=== PATIENT | male | born 1950 | race Caucasian/White ===

== ENCOUNTER 2020-10-27 09:57 | Day surgery (SDC) | payer MEDICARE, BC ==
[~2020-10-27] VITALS: Ht 180.3 cm; Wt 103.6 kg
[~2020-10-27 09:57] MED LIST: DOCUSATE SODIU100 MG PO; FLUOXETINE HCL20 MG PO; LORAZEPAM1 MG PO; MELOXICAM7.5 MG PO; METHOCARBAMOL750 MG PO; METOPROLOL SUCC50 MG PO; PERCOCET 5-3251 EACH PO; PERCOCET 7.5-31 EACH PO; SIMVASTATIN80 MG PO; TAMSULOSIN HCL0.4 MG PO; VERAPAMIL HCL120 MG PO
[2020-10-27] MEDS ORDERED: VITAMIN D350 MC3 PO (10:11)
--- NOTE | 2020-10-27 12:24 | NUR ---
10/27/20 1224 Valencia Ivey 1218- PT ARRIVES TO PACU AWAKE AND TALKING. PT REPORTS NO DIZZINESS, PAIN, OR NAUSEA. RESP EVEN AND UNLABORED. OXYGEN SAT MID TO HIGH 90'S ON 2L VIA NC. 1222- OXYGEN TITRATED OFF.
--- NOTE | 2020-10-28 12:12 | OR ---
[facility] [address] [place], [place] [address] Signed DATE OF OPERATION: 10/27/2020 SURGEON: Josh Hidalgo MD PREOPERATIVE DIAGNOSES: 1. History of hyperplastic polyp in rectum, 2016. 2. Episodic diarrhea. 3. Rare blood per rectum. POSTOPERATIVE DIAGNOSES: 1. Polyps x6, some hyperplastic, some adenomatous. 2. Diverticular changes, sigmoid. 3. Internal hemorrhoids. PROCEDURES: Total colonoscopy to cecum with cold snare polypectomy x3, cold morcellation polypectomy x3. ANESTHESIA: Intravenous sedation and fentanyl 100 mcg and Versed 8 mg. INDICATION: A 70-year-old white man is a patient of Tamiko DOMINGUEZ, known to me from the past having last undergone colonoscopy in 2016 at which time he was found to have a hyperplastic polyp of the rectum. He for the past two years has had episodic diarrhea, occasionally blood per rectum. He is admitted at this time to undergo colonoscopy on that basis. He understands the risks of bleeding, infection, and perforation. FINDINGS: The prep was excellent. Complete colonoscopy was undertaken to the cecum without question. He had scattered diverticula of the sigmoid, which were not a dominant feature. He had 6 small polyps throughout the colon, all of them excised, 3 of which were likely adenoma with 3 likely hyperplastic polyps. He also had a single internal hemorrhoid, which may account for his bleeding. Notably, it was not bleeding today. DESCRIPTION OF PROCEDURE: Patient was brought to the endoscopy suite and placed in lateral decubitus position, given intravenous sedation to the point of slurred speech and nystagmus. Digital rectal examination was normal. Electronically Signed By: JOSH HIDALGO MD 10/28/20 1212 PATIENT NAME: PARISH POOL OPERATIVE REPORT DATE OF : 46 REPORT #: [id number] PHYSICIAN: JOSH HIDALGO MD PCP: TAMIKO LYNN PAC REPORT IS CONFIDENTIAL AND NOT TO BE RELEASED WITHOUT AUTHORIZATION [facility] [address] [place], [place] [address] Signed An Olympus video colonoscope was passed in the rectum and manipulated throughout the colon ultimately intubating the cecum itself. The ileocecal valve and appendiceal orifice were normal. The scope was withdrawn. Examination showed no sign of abnormality until the left transverse colon/splenic flexure area where a small apparent polyp was noted, this was excised with cold morcellation technique, though it was quite minimal and may prove to be not even a polyp, but rather lymphoid aggregate. The scope was withdrawn and 2 polyps quite obviously polyps were noted in the mid to upper left colon, 2 of them excised with cold snare technique. Further withdrawal of scope showed 2 similar such polyps in the sigmoid, 1 excised with cold morcellation technique, the other with cold snare technique. The scope was withdrawn and retroflexed view was undertaken showing no sign of polyps in the low rectum, but certainly internal hemorrhoidal changes dominant column. Notably, it was not bleeding. A polyp in the low rectum was also noted, this was excised with cold morcellation technique. In aggregate, 6 polyps were excised. He is taken to the recovery room at conclusion of procedure having suffered no known complications. CONCLUDING DIAGNOSES: 1. Polyps x6, likely 3 adenomatous, 3 hyperplastic. 2. Internal hemorrhoid likely accounting for episodic rectal bleeding and minimal diverticular changes. PLAN: We would recommend a repeat colonoscopy in 1-3 years depending on patient preference, sooner if symptoms should recur. If he does have persistent bleeding, consideration will be made for hemorrhoidal banding in the office setting. I would recommend a high-fiber diet or a fiber supplement such as Metamucil 1 scoop daily. He will return to the ongoing care of Tamiko Lynn in the meantime. MD HERON Fraser/VELVETL /[id number] cc: ALBERTO Arora Electronically Signed By: JOSH HIDALGO MD 10/28/20 1212 PATIENT NAME: PARISH POOL OPERATIVE REPORT DATE OF : 46 REPORT #: [id number] PHYSICIAN: JOSH HIDALGO MD PCP: TAMIKO LYNN PAC REPORT IS CONFIDENTIAL AND NOT TO BE RELEASED WITHOUT AUTHORIZATION [facility] [address] [facility] [place], [place] [address] Signed Copies: ~ Electronically Signed By: JOSH HIDALGO MD 10/28/20 1212 PATIENT NAME: CORINEPARISH VINCENZO OPERATIVE REPORT DATE OF : 46 REPORT #: [id number] PHYSICIAN: JOSH HIDALGO MD PCP: TAMIKO LYNN PAC REPORT IS CONFIDENTIAL AND NOT TO BE RELEASED WITHOUT AUTHORIZATION
--- NOTE | 2020-10-28 14:54 | PATH ---
[facility] [address] [facility] [place], [place] [address] Signed SPECIMEN(S): A SPLENIC FLEXURE POLYP SPECIMEN(S): B DESCENDING POLYP SPECIMEN(S): C DESCENDING POLYP SPECIMEN(S): D SIGMOID POLYP SPECIMEN(S): E SIGMOID POLYP SPECIMEN(S): F RECTAL POLYP SPECIMEN SOURCE: A. SPLENIC FLEXURE POLYP B. DESCENDING POLYP C. DESCENDING POLYP D. SIGMOID POLYP E. SIGMOID POLYP F. RECTAL POLYP CLINICAL HISTORY: Colonoscopy with poss. biopsies. Rectal polyp, diarrhea. Postop Dx: Multiple polyps, diverticulosis, internal hemorrhoids. MICROSCOPIC DESCRIPTION: Histologic sections of all submitted blocks are examined by light microscopy. These findings, together with the gross examination, support the pathologic diagnosis. FINAL PATHOLOGIC DIAGNOSIS: A. Colon, splenic flexure, polyp, polypectomy: - Tubular adenoma. - Negative for high-grade dysplasia or malignancy. B. Colon, descending, polyp, polypectomy: - Tubular adenoma. - Negative for high-grade dysplasia or malignancy. C. Colon, descending, polyp, polypectomy: - Tubular adenoma. - Negative for high-grade dysplasia or malignancy. D. Colon, sigmoid, polyp, polypectomy: - Tubular adenoma. - Negative for high-grade dysplasia or malignancy. E. Colon, sigmoid, polyp, polypectomy: - Fragments of tubular adenoma. - Negative for high-grade dysplasia or malignancy. F. Rectum, polyp, polypectomy: - Hyperplastic polyp. PATIENT NAME: PARISH POOL VINCENZO PATHOLOGY DATE OF : 46 REPORT #: [id number] PHYSICIAN: MARISSA PATHOLOGY PCP: TAMIKO LYNN PAC REPORT IS CONFIDENTIAL AND NOT TO BE RELEASED WITHOUT AUTHORIZATION [facility] [address] [place], [place] [address] Signed - Negative for dysplasia or malignancy. NAL:cml:C2NR GROSS DESCRIPTION: Six specimens are received in six containers labeled with "JH." A. The specimen, labeled "JH," and designated on the requisition "splenic flexure polypectomy," is received in formalin and consists of two fragments of pink-loyola tissue (0.3 x 0.2 x 0.1 cm in aggregate). The specimen is submitted entirely in cassette (A1). B. The specimen, labeled "JH," and designated on the requisition "descending/left polypectomy," is received in formalin and consists of one fragment of pink-loyola tissue (0.3 x 0.2 x 0.2 cm). The specimen is submitted entirely in cassette (B1). C. The specimen, labeled "JH," and designated on the requisition "descending/left polypectomy," is received in formalin and consists of one piece of pink-loyola tissue (0.3 x 0.3 x 0.3 cm). The specimen is submitted entirely in cassette (C1). D. The specimen, labeled "JH," and designated on the requisition "sigmoid polypectomy," is received in formalin and consists of one fragment of pink-loyola tissue (0.3 x 0.2 x 0.2 cm). The specimen is submitted entirely in cassette (D1). E. The specimen, labeled "JH," and designated on the requisition "sigmoid polypectomy," is received in formalin and consists of one fragmented piece of pink-loyola tissue (0.7 x 0.4 x 0.4 cm). The specimen is submitted entirely in cassette (E1). F. The specimen, labeled "JH," and designated on the requisition "rectum polypectomy," is received in formalin and consists of one fragment of pink-loyola tissue (0.3 x 0.2 x 0.2 cm). The specimen is submitted entirely in cassette (F1). AC (under the direct supervision of a pathologist) The Gross Description was prepared using a voice recognition system. The report was reviewed for accuracy; however, sound-alike word errors, addition and/or deletions may occur. If there is any question about this report, please contact Client Services. PERFORMING LABORATORY: The technical component was performed by [facility] [address] (Pharmacognosy Teacher: Preeti Cardoza MD; CLIA# [id number]). [facility], [address] [facility]. 107, PATIENT NAME: PARISH POOL PATHOLOGY DATE OF : 46 REPORT #: [id number] PHYSICIAN: MARISSA GONZALEZ PCP: TAMIKO LYNN PAC REPORT IS CONFIDENTIAL AND NOT TO BE RELEASED WITHOUT AUTHORIZATION [facility] [address] [facility] [place] [address] Signed [place] [id number] (CLIA# [id number]). Diagnostician: Aline Vickers MD Pathologist Electronically Signed 10/28/2020 Copies: ~ PATIENT NAME: PARISH POOL PATHOLOGY DATE OF : 46 REPORT #: [id number] PHYSICIAN: MARISSA GONZALEZ PCP: TAMIKO LYNN PAC REPORT IS CONFIDENTIAL AND NOT TO BE RELEASED WITHOUT AUTHORIZATION
== END 2020-10-27 12:50 | disposition home or self-care (01) ==
LOC: OPS 09:57 → DS 10:01 → OPS 11:00 → DS 11:00 → OPS 12:50 → DS 13:00
PROVIDERS: ATTEND Surgery
PROC: 0DBN8ZX Excision of Sigmoid Colon, Via Natural or Artificial Opening Endoscopic, Diagnostic (ICD-10-PCS; 2020-10-27)
PROC: 0DBN8ZX Excision of Sigmoid Colon, Via Natural or Artificial Opening Endoscopic, Diagnostic (ICD-10-PCS; 2020-10-27)
PROC: 0DBL8ZX Excision of Transverse Colon, Via Natural or Artificial Opening Endoscopic, Diagnostic (ICD-10-PCS; 2020-10-27)
PROC: 0DBM8ZX Excision of Descending Colon, Via Natural or Artificial Opening Endoscopic, Diagnostic (ICD-10-PCS; principal; 2020-10-27 11:00)
DX: K57.31 Diverticulosis of large intestine without perforation or abscess with bleeding (principal); K64.8 Other hemorrhoids; D12.4 Benign neoplasm of descending colon; D12.5 Benign neoplasm of sigmoid colon; D12.3 Benign neoplasm of transverse colon; I10 Essential (primary) hypertension; F17.210 Nicotine dependence, cigarettes, uncomplicated; Z88.5 Allergy status to narcotic agent; Z88.8 Allergy status to other drugs, medicaments and biological substances; Z92.3 Personal history of irradiation
CPT/HCPCS: 99153; G0500; J2250; J3010; J7121

== ENCOUNTER 2021-01-20 16:41 | Inpatient (IN) | payer MEDICARE, BC ==
[~2021-01-20] VITALS: Ht 185.4 cm; Wt 104.6 kg
[~2021-01-20 16:41] MED LIST changes: -METOPROLOL SUCC50 MG PO; +TOPROL XL100 MG PO; +VITAMIN D350 MC3 PO
[2021-01-20] MEDS ORDERED: ATORVASTATIN CA40 MG PO (17:47)
[2021-01-20] MEDS ORDERED: CHLORTHALIDONE25 MG PO (17:47)
[2021-01-20] MEDS ORDERED: COLESTIPOL HCL1 GM PO (17:47)
[2021-01-20] MEDS ORDERED: FLUOXETINE HCL10 MG PO (17:48)
[2021-01-20] MEDS ORDERED: NITROFURANTOIN100 M1 PO (17:49)
--- NOTE | 2021-01-20 21:10 | NUR ---
PT ARRIVES TO FLOOR VIA STRETCHER, ABLE TO STAND AND WALK INTO THE BATHROOM WITH SBA. ADMISSION PROCESS COMPLETE. BRIAN BOX DELIVERED FROM [employer]LECTROSL[employer] WELDING MACHINE OPERATOR. PT ATE MINIMAL AMOUNT REPORTS NAUSEA AND STOMACH DISCOMFORT. PT REQUESTS NAUSEA MEDICATION AND TYLENOL. ADMINISTERED ORDERED. IV FLUSHED. WNL. ICE WATER PROVIDED. ORIENTED TO ROOM, CALL LIGHT, AND POC FOR THIS SHIFT. PT STATES UNDERSTANDING. DENIES FURTHER NEEDS AT THIS TIME. CALL LIGHT IN REACH.
--- NOTE | 2021-01-20 22:45 | NUR ---
ASSESSMENT COMPLETE, ADMISSSION COMPLETED BY GEODESIST ERIKA. IV FLUIDS ALREADY INFUSING PER MD ORDERS, SITE WNL. pt AWAKE AND RESTING IN BED, REPORTS GENEALIZED ABD DISCOMFORT, MEDICATED BY GEODESIST ERIKA. WILL CONTINUE TO MONITOR. pt DENIES ADDITIONAL NEEDS AT THIS TIME, ALREADY ORIENTED TO ROOM. CALL LIGHT IN REACH.
--- NOTE | 2021-01-21 | NUR ---
CALL LIGHT ANSWERED, pt ASSISTED SBA TO BATHROOM FOR POSSIBLE BM, pt INSTRUCTED TO USE CALL LIGHT WHEN DONE. pt VERBALIZES UNDERSTANDING, CALL LIGHT IN REACH.
--- NOTE | 2021-01-21 00:18 | NUR ---
on to assist pt from toilet, new gown and draw sheet provided, no further needs at this time
--- NOTE | 2021-01-21 01:00 | NUR ---
pt RESTING IN BED WITH EYES CLOSED, RR EVEN AND UNLABORED. NO DISTRESS NOTED, CALL LIGHT IN REACH. IV FLUIDS CONTINUE TO INFUSE PER MD ORDERS.
--- NOTE | 2021-01-21 01:51 | NUR ---
ON PHONE WITH BILL FROM TELEPHARMACY, BILL TO RETIME SCHEDULED CEFEPIME PER RENAL DOSING POLICY. ABX TO START AT 0900.
--- NOTE | 2021-01-21 02:20 | NUR ---
SHIFT REPORT RECEIVED FROM ERICKSON MCDONALD. PT SLEEPING.
--- NOTE | 2021-01-21 02:30 | NUR ---
ASSESSMENT, VS AND I&O COMPLETED. PT REPORTS 3/10 ABD PAIN, DENIES NEED FOR INTERVENTION.PT REPORTS MILD ABD DISTENTION, TENDERNESS, BOWEL TONES ACTIVE. DENIES PAIN OR DIFFICULTY WITH URINATION. NO OTHER NEEDS. CALL LIGHT IN REACH.
--- NOTE | 2021-01-21 02:33 | NUR ---
IN TO GET VITALS WITH RN, ICE WATER TOPPED OFF, NO FURTHER NEEDS AT THSI TIME
--- NOTE | 2021-01-21 04:22 | NUR ---
PT STATES HE HAS 6/10 LOWER BAD PAIN, PRN PAIN MED PROVIDED. NEW BAG IV FLUIDS PROVIDED. NO OTHER NEEDS AT THIS TIME.
--- NOTE | 2021-01-21 07:30 | NUR ---
THIS RN RECEIVED REPORT FROM DESI MCDONALD. PT AWAKE THIS AM AND STATES THAT HIS PAIN IS IMPROVING THIS AM. NO FURTHER CONCERNS
--- NOTE | 2021-01-21 10:05 | NUR ---
THIS RN IN PTS ROOM TO DO PTS ASSESMENT AND GIVE MORNIGN MEDS. PT SITTING UP IN BED AND STATES THAT HIS PAIN IS INCREASING THIS AM, THIS RN TO PROVIDE PT WITH 650MG TYLENOL FOR PTS PAIN IN ABD
--- NOTE | 2021-01-21 12:05 | NUR ---
THIS RN IN PTS ROOM TO CHECK ON PT. PT STATES THAT HE IS DOING WELL. THIS RN ALSO TO SWITCH ANTIBIOTICS OVER PER MD ORDERS. PT STATES THAT HE NEEDS NOTING ELSE AT THIS TIME.
--- NOTE | 2021-01-21 14:30 | NUR ---
THIS RN IN PTS ROOM TO REASSESS PT. PT STATES THAT HE IS DOING WELL AND NEEDS NOTHING AT THIS TIME, JUST READY TO TAKE A SHOWER SOON.
--- NOTE | 2021-01-21 18:09 | NUR ---
pt up to the chair at this time after shower. pt states that his pain is doing much better this afternoon and needs nothing at this time.
--- NOTE | 2021-01-21 19:37 | NUR ---
REPORT RECEIVED FROM DAY SHIFT RN. PT SITTING IN RECLINER ALERT AND ORIENTED. IVF INFUSING. WHITE BOARD UPDATED. DENIES NEEDS AT THIS TIME. CALL LIGHT IN REACH.
--- NOTE | 2021-01-21 21:00 | NUR ---
EVENING ASSESSMENT COMPLETE. SCHEDULED MEDS ADMINISTERED PER EMAR. IVF INFUSING ORDERED. PT REPORTS LOWER ABD/BACK/HEADACHE PAIN. AGREES TO WAIT FOR PRN ADMINISTRATION TIME. COFFEE AND SNACK PROVIDED PER REQUEST. URINAL WITH 100 ML YELLOW URINE EMPTIED. PT DOES REPORTS SOME BURNING PAIN WHEN STARTING STREAM. PT DENIES QUESTIONS OR CONCERNS. CALL LIGHT IN REACH.
--- NOTE | 2021-01-21 22:30 | NUR ---
PRN ADMINISTERED FOR REPORTS OF BACK AND LOWER ABD PAIN. URINAL EMPTIED OF 150 ML YELLOW URINE. NO FURTHER NEEDS. CALL LIGHT IN REACH.
--- NOTE | 2021-01-22 01:33 | NUR ---
PT RESTING IN BED WITH EYES CLOSED, NAD.
--- NOTE | 2021-01-22 02:20 | NUR ---
CALL LIGHT ANSWERED. IV PUMP ALARMING. NEW BAG IV FLUID INFUSING. FRESH WATER PROVIDED. DENIES FURTHER NEEDS.
--- NOTE | 2021-01-22 04:53 | NUR ---
VS AND I&O COMPLETE. PRN FOR PROVIDED FOR LOWER ABD PAIN. PT VOID QS CLEAR YELLOW URINE. SNACK PROVIDED. DENIES FURTHER NEEDS. CALL LIGHT IN REACH.
--- NOTE | 2021-01-22 07:39 | NUR ---
this rn received report from danial marie. pt states that he is ready for breakfast and needs nothing else at this time
--- NOTE | 2021-01-22 09:00 | NUR ---
this rn in pts room to give pt his mornign meds. pt sitting up in chair this am and states that his pain is 1/10 in his abdomen and when he pees. pt states that it hasn't really changed from yesterday. pt states that he has nothing else to report this am
[2021-01-22] MEDS ORDERED: CIPROFLOXACIN500 MG PO (11:36)
== END 2021-01-22 12:55 | disposition home or self-care (01) | DRG 862 ==
LOC: ED 16:41 → MS 20:59
PROVIDERS: ADMIT Internal Medicine; ATTEND Internal Medicine
DX: T81.40XA Infection following a procedure, unspecified, initial encounter (principal); A41.59 Other Gram-negative sepsis; N30.00 Acute cystitis without hematuria; N17.9 Acute kidney failure, unspecified; N18.4 Chronic kidney disease, stage 4 (severe); T81.44XA Sepsis following a procedure, initial encounter; G89.29 Other chronic pain; M54.9 Dorsalgia, unspecified; I12.9 Hypertensive chronic kidney disease with stage 1 through stage 4 chronic kidney disease, or unspecified chronic kidney disease; E78.5 Hyperlipidemia, unspecified; K21.9 Gastro-esophageal reflux disease without esophagitis; F39 Unspecified mood [affective] disorder; F17.290 Nicotine dependence, other tobacco product, uncomplicated; Z86.010 Personal history of colon polyps; Z85.46 Personal history of malignant neoplasm of prostate; Z88.5 Allergy status to narcotic agent; Z79.899 Other long term (current) drug therapy
CPT/HCPCS: 36415; 51798; 80048; 80053; 81001; 83605; 83735; 85025; 87040; 87077; 87088; 87186; 99284-25; C9113; C9803; J0692; J0744; J2405; J3475; J7030; J7121; U0003

== ENCOUNTER 2021-09-29 18:13 | Emergency (ER) | payer MEDICARE, BC ==
[~2021-09-29] VITALS: Ht 185.4 cm; Wt 104.3 kg
[~2021-09-29 18:13] MED LIST changes: +ATORVASTATIN CA40 MG PO; +CHLORTHALIDONE25 MG PO; +CIPROFLOXACIN500 MG PO; +COLESTIPOL HCL1 GM PO; +FLUOXETINE HCL10 MG PO; +NITROFURANTOIN100 M1 PO
[2021-09-29] MEDS ORDERED: METOPROLOL SUC100 MG PO (19:20)
--- NOTE | 2021-10-02 10:06 | OR ---
[facility] [address] [facility] [place] [address] Signed DATE OF OPERATION: 09/29/2021 SURGEON: Nery Dukes MD PREPROCEDURAL DIAGNOSES: 1. Difficult Champion catheterization. 2. History of urethral stricture disease. POSTPROCEDURAL DIAGNOSES: 1. Difficult Champion catheterization due to the presence of a tight membranous urethral stricture. 2. History of prostate cancer, status post proton therapy treatment. NAMES OF PROCEDURES: 1. Diagnostic ureteroscopy. 2. Urethral dilation using Aleida sounds, from 12-Swedish to 20-Swedish. 3. Placement of indwelling Champion catheter over a Sensor wire. SURGEON: Nery Dukes MD. ANESTHESIA: A 20 mL of 2% lidocaine gel. SPECIMENS: None. DRAINS: A 16-Swedish [place]reau tip Champion catheter, connected to gravity drainage. COMPLICATIONS: None. INDICATIONS FOR PROCEDURE: Mr. Barrow is a very pleasant 71-year-old gentleman with a history of prostate cancer, treated with proton therapy in 2002. His PSA has remained mostly undetectable and he has not experienced any recurrence of his prostate cancer since that time. However, a few years ago the patient began to experience a weak force of stream and difficulty voiding. He has undergone multiple urethral dilations by Dr. Mckinley in the past, most of them performed under anesthesia. The patient reports that approximately 3 months Electronically Signed By: NERY DUKES MD 10/02/21 1006 PATIENT NAME: PARISH BARROW OPERATIVE REPORT DATE OF : 46 REPORT #: [id number] PHYSICIAN: NERY DUKES MD PCP: TAMIKO LYNN PAC REPORT IS CONFIDENTIAL AND NOT TO BE RELEASED WITHOUT AUTHORIZATION [facility] [address] [place], [place] [address] Signed ago, he began to experience weakness in his force of stream again and since that time he has been trying to establish with a new urologist. He noticed earlier today that he was unable to void and immediately contacted a ride to be sent to the Emergency Department. OPERATIVE FINDINGS: 1. Inspection of the external genitalia reveals a normal circumcised phallus with a glanular meatus. Testicles are descended bilaterally. 2. Ureteroscopy reveals a tight membranous urethral stricture. Thankfully, I was able to dilate the stricture over a Sensor wire using Aleida sounds from 12-Swedish to 20-Swedish without difficulty. 3. A 16-Swedish F[place]reau tip Champion catheter was passed over the Sensor wire and into the patient's bladder. The Champion catheter balloon was filled with 10 mL of sterile water. Approximately 350 mL of urine was then drained from the patient's bladder at the end of the procedure. DESCRIPTION OF PROCEDURE: After informed consent was obtained, the patient was placed in the supine position and his genitalia prepped and draped in sterile fashion. A 20 mL of lidocaine gel was then inserted into his urethra for local anesthesia. He was also given 0.5 mg of Dilaudid just prior to the procedure. A flexible cystoscope was advanced through his urethral meatus and into his pendulous urethra. I made it to the membranous urethra and I immediately noticed a very tight small opening in the area. This is most likely consistent with his previous history of urethral stricture. I passed a 0.035 Sensor wire through the stricture and into the patient's bladder. I then removed the flexible cystoscope, leaving the wire behind. Over the wire, I then passed multiple Atif dilators in succession, starting with 12-Swedish and finishing with 20-Swedish. This portion of the procedure was performed without difficulty and I was able to dilate the stricture without too much discomfort on the part of the patient. With the Sensor wire stent placed, I then passed a 16-Swedish Flandreau tip Champion catheter over the wire and into the patient's bladder. I got excellent urine return and pulled the Sensor wire, leaving the Champion catheter behind. The Champion balloon was then filled with 10 mL of sterile water. The catheter then drained approximately 350 mL thereafter. The procedure was then terminated. DISPOSITION: The patient will leave the Emergency Department this evening with a Champion catheter gravity drainage. He has done this before and he is familiar with how to manage the catheter. I did tell him that he should only use a leg bag when he is on his feet for long periods of time and for the remainder of the time he needs use his gravity drainage bag. He will be scheduled to return to clinic this to see my nurse to undergo a voiding trial. In the interim, he will be scheduled to see me for formal consultation in managing his membranous urethral stricture. Electronically Signed By: NERY DUKES MD 10/02/21 1006 PATIENT NAME: PARISH BARROW OPERATIVE REPORT DATE OF : 46 REPORT #: [id number] PHYSICIAN: NERY DUKES MD PCP: TAMIKO LYNN PAC REPORT IS CONFIDENTIAL AND NOT TO BE RELEASED WITHOUT AUTHORIZATION [address] [address] Signed Nery Dukes MD AR/MODL /[id number] Copies: ~ Electronically Signed By: NERY DUKES MD 10/02/21 1006 PATIENT NAME: PARISH BARROW VINCENZO OPERATIVE REPORT DATE OF : 46 REPORT #: [id number] PHYSICIAN: NERY DUKES MD PCP: TAMIKO LYNN PAC REPORT IS CONFIDENTIAL AND NOT TO BE RELEASED WITHOUT AUTHORIZATION
== END 2021-09-29 23:11 | disposition home or self-care (01) ==
LOC: ED 18:13
DX: R33.9 Retention of urine, unspecified (principal); I10 Essential (primary) hypertension; K21.9 Gastro-esophageal reflux disease without esophagitis; E78.00 Pure hypercholesterolemia, unspecified; F17.200 Nicotine dependence, unspecified, uncomplicated; Z88.5 Allergy status to narcotic agent; Z79.899 Other long term (current) drug therapy
CPT/HCPCS: 51702; 51798; 99283-25; J1170

== ENCOUNTER 2022-08-29 05:34 | Emergency (ER) | payer MEDICARE, BC ==
[~2022-08-29] VITALS: Ht 185.4 cm; Wt 103.0 kg
[~2022-08-29 05:34] MED LIST changes: +METOPROLOL SUC100 MG PO
== END 2022-08-29 08:40 | disposition home or self-care (01) ==
LOC: ED 05:34
DX: N40.1 Benign prostatic hyperplasia with lower urinary tract symptoms (principal); N13.8 Other obstructive and reflux uropathy; R33.8 Other retention of urine; I10 Essential (primary) hypertension; E78.00 Pure hypercholesterolemia, unspecified; K21.9 Gastro-esophageal reflux disease without esophagitis; F17.200 Nicotine dependence, unspecified, uncomplicated; Z88.5 Allergy status to narcotic agent; Z79.899 Other long term (current) drug therapy
CPT/HCPCS: 96372; 99283; J1170

== ENCOUNTER 2022-09-05 17:48 | Emergency (ER) | payer MEDICARE, BC ==
[~2022-09-05] VITALS: Ht 185.4 cm; Wt 103.0 kg
[~2022-09-05 17:48] MED LIST changes: +CEFDINIR300 MG PO
--- OUTSIDE RECORDS SUMMARY | 2022-09-05 17:50 | XMS ---
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 [place] VISIT COUNT (12 MO.) 3 [facility] TOTAL 3 NOTE: Visits indicate total known visits. ED/UCC VISIT TRACKING (12 MO.) 09/05/2022 17:[address] [facility] [place] TYPE: Emergency COMPLAINT: - FEVER 08/29/2022 05:35 [facility] [place] TYPE: Emergency COMPLAINT: - URINE PROBLEM DIAGNOSES: - Nicotine dependence, unspecified, uncomplicated - Gastro-esophageal reflux disease without esophagitis - Benign prostatic hyperplasia with lower urinary tract symptoms - Other retention of urine - Pure hypercholesterolemia, unspecified - Retention of urine, unspecified - Other group home (current) drug therapy - Allergy status to narcotic agent - Essential (primary) hypertension - Other obstructive and reflux uropathy 09/29/2021 18:[address] [facility] [place] [facility] [place] TYPE: Emergency COMPLAINT: - URINE ISSUES DIAGNOSES: - Pure hypercholesterolemia, unspecified - Gastro-esophageal reflux disease without esophagitis - Retention of urine, unspecified - Essential (primary) hypertension - Nicotine dependence, unspecified, uncomplicated - Other group home (current) drug therapy - Allergy status to narcotic agent INPATIENT VISIT TRACKING (12 MO.) No inpatient visits to display in this time frame [email or web address]
[2022-09-05] MEDS ORDERED: CIPROFLOXACIN500 MG PO (18:41)
[2022-09-05] MEDS ORDERED: MACROBID 100 M100 MG PO (20:19)
== END 2022-09-05 20:54 | disposition home or self-care (01) ==
LOC: ED 17:48
DX: N39.0 Urinary tract infection, site not specified (principal); I10 Essential (primary) hypertension; E78.00 Pure hypercholesterolemia, unspecified; K21.9 Gastro-esophageal reflux disease without esophagitis; F17.200 Nicotine dependence, unspecified, uncomplicated; Z88.6 Allergy status to analgesic agent; Z88.5 Allergy status to narcotic agent; Z79.899 Other long term (current) drug therapy
CPT/HCPCS: 36415; 80048; 81001; 85025; 99283

== ENCOUNTER 2022-11-11 09:55 | Emergency (ER) | payer MEDICARE, BC ==
[~2022-11-11] VITALS: Ht 185.4 cm; Wt 95.2 kg
[~2022-11-11 09:55] MED LIST changes: +ELIQUIS5 MG PO; +LANTUS100 UNITS/ SUB-Q; +MACROBID 100 M100 MG PO; +TRIAMCINOLONE A15 G1 TOP
[2022-11-11] MEDS ORDERED: ONDANSETRON ODT8 MG PO (15:36)
[2022-11-11] MEDS ORDERED: PERCOCET 7.5-31 EACH PO (15:36)
[2022-11-11] MEDS ORDERED: FLOMAX0.4 MG PO (15:36)
== END 2022-11-11 15:59 | disposition home or self-care (01) ==
LOC: ED 09:55
DX: N13.2 Hydronephrosis with renal and ureteral calculous obstruction (principal); I10 Essential (primary) hypertension; E80.0 Hereditary erythropoietic porphyria; K21.9 Gastro-esophageal reflux disease without esophagitis; F17.200 Nicotine dependence, unspecified, uncomplicated; Z88.5 Allergy status to narcotic agent; Z88.6 Allergy status to analgesic agent; Z79.899 Other long term (current) drug therapy; Z79.01 Long term (current) use of anticoagulants; Z79.4 Long term (current) use of insulin
CPT/HCPCS: 36415; 51702; 74176; 80053; 81001; 85025; 99284-25; J1170; J7030